=== PATIENT | male | born 1965 | race Caucasian/White ===

== ENCOUNTER 2021-05-06 14:09 | Emergency (ER) | payer OTHER ==
[~2021-05-06] VITALS: Ht 182 cm; Wt 90.7 kg
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
[2021-05-06 15:16] VITALS: BP 148/94
== END 2021-05-06 15:16 | disposition home or self-care (01) ==
LOC: ER 14:12
DX: S06.0X0A Concussion without loss of consciousness, initial encounter (principal); S16.1XXA Strain of muscle, fascia and tendon at neck level, initial encounter; R40.2410 Glasgow coma scale score 13-15, unspecified time; V89.2XXA Person injured in unspecified motor-vehicle accident, traffic, initial encounter
CPT/HCPCS: 70450; 71045; 72125